=== PATIENT | female | born 1950 | race Caucasian/White ===

== ENCOUNTER 2017-03-17 04:17 | Emergency (ER) | payer BC ==
[~2017-03-17] VITALS: Ht 167.6 cm; Wt 103.5 kg
[~2017-03-17 04:17] MED LIST: Advil,Nuprin,Motrin PO; Flagyl PO; KEFLEX500 MG PO; Maxipime IV; TYLENOL REGULA325 MG PO; VICODIN 5-3001 EACH PO
[2017-03-17] MEDS ORDERED: MEDROL DOSEPAK4 MG PO (05:21)
[2017-03-17] MEDS ORDERED: NEURONTIN300 MG PO (05:21)
[2017-03-17 05:42] VITALS: BP 149/95
== END 2017-03-17 05:49 | disposition home or self-care (01) ==
LOC: EME 04:17
DX: M54.16 Radiculopathy, lumbar region (principal); M54.41 Lumbago with sciatica, right side
CPT/HCPCS: 99281; 99283; J1885